=== PATIENT | female | born 1950 | race Caucasian/White ===

== ENCOUNTER 2018-03-11 10:16 | Emergency (ER) | payer OTHER, MEDICAID ==
[~2018-03-11] VITALS: Ht 162.6 cm; Wt 43.5 kg
[2018-03-11 10:16] VITALS: BP_SYST 200
[2018-03-11] MEDS ORDERED: cloNIDine HCL 0.1 MG TABLET PO ONE (10:45)
[2018-03-11 11:45] VITALS: BP_SYST 159
== END 2018-03-11 11:45 | disposition home or self-care (01) ==
LOC: SED 10:16
DX: S51.031A Puncture wound without foreign body of right elbow, initial encounter (principal); I10 Essential (primary) hypertension; Z86.79 Personal history of other diseases of the circulatory system; Z99.2 Dependence on renal dialysis; X58.XXXA Exposure to other specified factors, initial encounter; Y93.89 Activity, other specified; Y92.89 Other specified places as the place of occurrence of the external cause; Y99.8 Other external cause status
CPT/HCPCS: 99283

== ENCOUNTER 2018-05-27 10:59 | Inpatient (IN) | payer OTHER, MEDICAID ==
[2018-05-27] VITALS (19 sets, daily range): BP systolic 77–131
[~2018-05-27] VITALS: Ht 162.6 cm; Wt 47.6 kg
[2018-05-27] MEDS ORDERED: NACL 0.9% 2,000 ML IV ONE (11:15)
[2018-05-27] MEDS ORDERED: VANCOMYCIN HCL 1,000 MG in NS 250 ML IV ONE (11:15)
[2018-05-27] MEDS ORDERED: PIPERACILLIN/TAZOBACTAM 2.25 GM in NS 50 ML IV ONE (11:15)
[2018-05-27] MEDS ORDERED: NS 500 ML IV ONE (11:15)
[2018-05-27] MEDS ORDERED: PIPERACILLIN/TAZOBACTAM 2.25 GM VIAL IV ONE (11:27)
[2018-05-27 11:35] LABS: BASOPHILS # (AUTO) 0.1 K/uL (0.0-0.2); EOSINOPHILS % (AUTO) 0.1 % (0.0-4.0); HEMOGLOBIN 9.5 g/dL (12.0-16.0); LYMPHOCYTES # (AUTO) 1.2 K/uL (1.0-5.5); MONOCYTES # (AUTO) 0.4 K/uL (0.0-1.0)
[2018-05-27 11:40] LABS: HEMATOCRIT 30.2 % (36-48); LYMPHOCYTES % (AUTO) 14.4 % (20.5-51.5); MEAN CORPUSCULAR HEMOGLOBIN 37 pg (27-31); MEAN CORPUSCULAR HGB CONC 32 % (32-36); MEAN CORPUSCULAR VOLUME 116 fL (79.0-98.0); NEUTROPHILS # (AUTO) 6.6 K/uL (1.8-7.7); NEUTROPHILS % (AUTO) 79.5 % (40.0-70.0); RED CELL DISTRIBUTION WIDTH 17.7 % (9.0-15.0); WHITE BLOOD COUNT (AUTO) 8.3 K/uL (4.8-10.8)
[2018-05-27 11:42] LABS: CREATININE 4.22 mg/dL (0.55-1.30); POTASSIUM 4.1 mmol/L (3.5-5.1)
[2018-05-27 11:51] LABS: ALBUMIN 1.4 g/dL (3.4-4.8); TOTAL BILIRUBIN 0.7 mg/dL (0.0-1.0)
[2018-05-27 11:53] LABS: PLATELET COUNT (AUTO) 48 K/uL (130-430)
[2018-05-27] MEDS ORDERED: ONDANSETRON HCL 4 MG/2 ML VIAL IVP ONE ×2 (12:15→15:45)
[2018-05-27] MEDS ORDERED: MORPHINE 2 MG/ML INJ. SYRINGE IVP ONE ×2 (12:15→15:45)
[2018-05-27] MEDS ORDERED: ASPIRIN 325 MG TABLET PO ONE (12:15)
[2018-05-27] MEDS ORDERED: CAT.1 PO (13:07)
[2018-05-27] MEDS ORDERED: SEVE800T8 PO (13:07)
[2018-05-27] MEDS ORDERED: LISI40TA4 PO (13:07)
[2018-05-27] MEDS ORDERED: OMEP20CA10 PO (13:07)
[2018-05-27] MEDS ORDERED: FOLI-43 PO (13:07)
[2018-05-27] MEDS ORDERED: ERGO500020 PO (13:07)
[2018-05-27] MEDS ORDERED: HYDR-4272 PO (13:07)
[2018-05-27] MEDS ORDERED: [UNRECOGNIZED DRUG - REMARK] PO (13:07)
[2018-05-27] MEDS ORDERED: PROXL60 PO (13:07)
[2018-05-27] MEDS ORDERED: NEPH PO (13:07)
[2018-05-27] MEDS ORDERED: ENOXAPARIN SODIUM 30 MG/0.3 ML SYRINGE SUBCUT ONE (13:30)
[2018-05-27] MEDS ORDERED: NOREPINEPHRINE BITARTRATE 4 MG in NS 246 ML IV ONE ×2 (14:15→15:15)
[2018-05-27 14:19] LABS: INR 1.5 (0.8-1.2)
[2018-05-27 14:26] LABS: PROTHROMBIN TIME 15.2 SECS (9.5-12.5)
[2018-05-27] MEDS ORDERED: VANCOMYCIN HCL 1000 MG/VIAL IV ONE (14:34)
[2018-05-27] MEDS ORDERED: NOREPINEPHRINE 4 MG/4 ML VIAL IV ONE (14:41)
[2018-05-27] MEDS ORDERED: PIPERACILLIN/TAZOBACTAM 2.25 GM in NS 50 ML IV SCH (16:00)
[2018-05-27] MEDS: NACL 0.9% 1,000 ML IV SCH (17:40)
[2018-05-27] MEDS ORDERED: VANCOMYCIN HCL 750 MG/NS 250 ML IV ONE (18:00)
[2018-05-27] MEDS: MEROPENEM 500 MG in NS 50 ML IV SCH (20:04)
[2018-05-27] MEDS ORDERED: MORPHINE 4 MG/ML INJ. SYRINGE IVP PRN (20:30)
[2018-05-28] VITALS (24 sets, daily range): BP systolic 86–172
[2018-05-28] MEDS: NACL 0.9% 1,000 ML IV SCH ×2 (00:21→16:06)
[2018-05-28] MEDS: NOREPINEPHRINE BITARTRATE 4 MG in NS 246 ML IV PRN ×2 (00:22→18:48)
[2018-05-28] MEDS: OMEPRAZOLE 20 MG CAPSULE.DR (PriLOSEC) PO SCH (06:02)
[2018-05-28 06:20] LABS: HEMATOCRIT 26.8 % (36-48); HEMOGLOBIN 8.8 g/dL (12.0-16.0); MEAN CORPUSCULAR HEMOGLOBIN 37 pg (27-31); MEAN CORPUSCULAR HGB CONC 33 % (32-36); MEAN CORPUSCULAR VOLUME 114 fL (79.0-98.0); PLATELET COUNT (AUTO) 66 K/uL (130-430); RED BLOOD CELL COUNT(AUTO) 2.35 MIL/uL (4.2-6.2); RED CELL DISTRIBUTION WIDTH 17.1 % (9.0-15.0); WHITE BLOOD COUNT (AUTO) 10.1 K/uL (4.8-10.8)
[2018-05-28 06:45] LABS: ALBUMIN 1.4 g/dL (3.4-4.8); CALCIUM 7.7 mg/dL (8.4-11.0); CREATININE 4.66 mg/dL (0.55-1.30); POTASSIUM 3.6 mmol/L (3.5-5.1); TOTAL BILIRUBIN 0.5 mg/dL (0.0-1.0); VANCOMYCIN,RANDOM 19.5 ug/mL
[2018-05-28 08:03] LABS: BASOPHILS % (MANUAL) 0 % (0-2); EOSINOPHILS % (MANUAL) 0 % (0-7); LYMPHOCYTES % (MANUAL) 9 % (20-46); MONOCYTES % (MANUAL) 4 % (0-11)
[2018-05-28] MEDS: NEPHROVITE, (FOLIC ACID/VITAMIN B COMP W-C 1 TAB) PO SCH (08:22)
[2018-05-28] MEDS: MEROPENEM 500 MG in NS 50 ML IV SCH ×2 (08:23→20:10)
[2018-05-28] MEDS: SEVELAMER HCL 800 MG TABLET PO SCH ×3 (08:23→17:56)
[2018-05-28] MEDS ORDERED: OLOP2.5D5 OP (09:12)
[2018-05-28] MEDS ORDERED: DORZ10DR10 EACH EYE (09:12)
[2018-05-28] MEDS ORDERED: HEPARIN 25,000 UNITS/D5W 250ML 250 ML IV PRN (12:15)
[2018-05-28] MEDS ORDERED: HEPARIN SODIUM,PORCINE 3000 UNITS/0.6 ML BOLUS IVP PRN ×2 (12:30→17:00)
[2018-05-28] MEDS ORDERED: HEPARIN SODIUM,PORCINE 2000 UNITS/0.4 ML BOLUS IVP PRN ×2 (12:30→17:00)
[2018-05-28] MEDS ORDERED: ENOXAPARIN SODIUM 40 MG/0.4 ML SYRINGE SUBCUT SCH (13:00)
[2018-05-28] MEDS ORDERED: *HEPARIN PER PHARMACY XX PRN (14:30)
[2018-05-28] MEDS ORDERED: ALBUMIN HUMAN 25% 200 ML IV ONE (16:30)
[2018-05-28] MEDS ORDERED: HEPARIN SODIUM,PORCINE 5000 UNITS/ML VIAL IV ONE (17:00)
[2018-05-28 17:14] LABS: INR 1.3 (0.8-1.2); PROTHROMBIN TIME 13.3 SECS (9.5-12.5)
[2018-05-28] MEDS ORDERED: HEPARIN SODIUM,PORCINE 5000 UNITS/ML VIAL IVP ONE (18:00)
[2018-05-28] MEDS: HEPARIN 25,000 UNITS in 250 ML PREMIX IV PRN (18:41)
[2018-05-28] MEDS ORDERED: COMMUNICATION ORDER XX ONE (19:30)
[2018-05-28] MEDS: PAZEO OP SCH (20:07)
[2018-05-29] VITALS (24 sets, daily range): BP systolic 79–156
[2018-05-29] MEDS: MORPHINE 4 MG/ML INJ. SYRINGE IVP PRN ×3 (04:13→17:58)
[2018-05-29 04:32] LABS: BASOPHILS # (AUTO) 0.1 K/uL (0.0-0.2); BASOPHILS % (AUTO) 1.3 % (0.0-2.0); EOSINOPHILS # (AUTO) 0.1 K/uL (0.0-0.4); LYMPHOCYTES # (AUTO) 1.5 K/uL (1.0-5.5); LYMPHOCYTES % (AUTO) 15.7 % (20.5-51.5); MEAN CORPUSCULAR HEMOGLOBIN 36 pg (27-31); MEAN CORPUSCULAR HGB CONC 31 % (32-36); MEAN CORPUSCULAR VOLUME 115 fL (79.0-98.0); MONOCYTES # (AUTO) 0.7 K/uL (0.0-1.0); MONOCYTES % (AUTO) 7.6 % (1.7-9.3); NEUTROPHILS % (AUTO) 74.4 % (40.0-70.0); PLATELET COUNT (AUTO) 54 K/uL (130-430); RED CELL DISTRIBUTION WIDTH 17.5 % (9.0-15.0); WHITE BLOOD COUNT (AUTO) 9.4 K/uL (4.8-10.8)
[2018-05-29 04:33] LABS: ALBUMIN 2.2 g/dL (3.4-4.8); CALCIUM 7.7 mg/dL (8.4-11.0); CREATININE 5.36 mg/dL (0.55-1.30); POTASSIUM 3.6 mmol/L (3.5-5.1); TOTAL BILIRUBIN 0.5 mg/dL (0.0-1.0)
[2018-05-29 04:36] LABS: RED BLOOD CELL COUNT(AUTO) 1.79 MIL/uL (4.2-6.2)
[2018-05-29 04:37] LABS: HEMATOCRIT 20.6 % (36-48); HEMOGLOBIN 6.4 g/dL (12.0-16.0)
[2018-05-29] MEDS: OMEPRAZOLE 20 MG CAPSULE.DR (PriLOSEC) PO SCH (06:03)
[2018-05-29] MEDS: NACL 0.9% 1,000 ML IV SCH (08:25)
[2018-05-29] MEDS: SEVELAMER HCL 800 MG TABLET PO SCH ×4 (08:28→18:00)
[2018-05-29] MEDS: NEPHROVITE, (FOLIC ACID/VITAMIN B COMP W-C 1 TAB) PO SCH (08:29)
[2018-05-29] MEDS: MEROPENEM 500 MG in NS 50 ML IV SCH (08:32)
[2018-05-29] MEDS ORDERED: CEFEPIME 1 GM in D5W 50 ML IV ONE (11:30)
[2018-05-29] MEDS ORDERED: ACETAMINOPHEN 325 MG TABLET PO PRN (17:15)
[2018-05-29] MEDS ORDERED: VANCOMYCIN HCL 1,000 MG in NS 250 ML IV SCH (21:00)
[2018-05-30] VITALS (16 sets, daily range): BP systolic 104–189
[2018-05-30] MEDS: NACL 0.9% 1,000 ML IV SCH (00:19)
[2018-05-30 06:46] LABS: HEMATOCRIT 28.7 % (36-48); HEMOGLOBIN 9.4 g/dL (12.0-16.0); LYMPHOCYTES # (AUTO) 1.1 K/uL (1.0-5.5); MEAN CORPUSCULAR HGB CONC 33 % (32-36); MONOCYTES # (AUTO) 0.6 K/uL (0.0-1.0); NEUTROPHILS # (AUTO) 4.4 K/uL (1.8-7.7)
[2018-05-30 06:52] LABS: TOTAL IRON BIND. CAPACITY 39 ug/dL (250-450)
[2018-05-30 07:03] LABS: BASOPHILS % (AUTO) 0.4 % (0.0-2.0); EOSINOPHILS # (AUTO) 0.1 K/uL (0.0-0.4); EOSINOPHILS % (AUTO) 1.2 % (0.0-4.0); INR 1.3 (0.8-1.2); LYMPHOCYTES % (AUTO) 17.9 % (20.5-51.5); MEAN CORPUSCULAR HEMOGLOBIN 31 pg (27-31); MEAN CORPUSCULAR VOLUME 95 fL (79.0-98.0); MONOCYTES % (AUTO) 8.9 % (1.7-9.3); NEUTROPHILS % (AUTO) 71.6 % (40.0-70.0); PROTHROMBIN TIME 13.7 SECS (9.5-12.5); RED BLOOD CELL COUNT(AUTO) 3.02 MIL/uL (4.2-6.2); WHITE BLOOD COUNT (AUTO) 6.2 K/uL (4.8-10.8)
[2018-05-30 07:17] LABS: PLATELET COUNT (AUTO) 38 K/uL (130-430)
[2018-05-30] MEDS: NEPHROVITE, (FOLIC ACID/VITAMIN B COMP W-C 1 TAB) PO SCH (08:03)
[2018-05-30] MEDS: BALSAM PERU/CASTOR OIL 60 GM OINT...G. TP SCH (08:03)
[2018-05-30] MEDS: CEFEPIME 1 GM in D5W 50 ML IV SCH (08:03)
[2018-05-30] MEDS: OMEPRAZOLE 20 MG CAPSULE.DR (PriLOSEC) PO SCH (08:04)
[2018-05-30] MEDS: SEVELAMER HCL 800 MG TABLET PO SCH ×3 (08:04→18:34)
[2018-05-30] MEDS: HEPARIN 25,000 UNITS in 250 ML PREMIX IV PRN (11:58)
[2018-05-30 14:43] LABS: CALCIUM 7.2 mg/dL (8.4-11.0); CREATININE 3.89 mg/dL (0.55-1.30)
[2018-05-30 14:52] LABS: POTASSIUM 2.7 mmol/L (3.5-5.1)
[2018-05-30] MEDS ORDERED: POTASSIUM CHLORIDE 40 MEQ in NS 250 ML IV ONE (15:00)
[2018-05-30] MEDS ORDERED: POTASSIUM CHLORIDE 20 MEQ/PKT PACKET PO ONE (15:00)
[2018-05-30] MEDS: VORICONAZOLE 200 MG TABLET PO SCH (20:41)
[2018-05-30 20:53] LABS: CALCIUM 7.3 mg/dL (8.4-11.0); CREATININE 4.1 mg/dL (0.55-1.30); POTASSIUM 4.1 mmol/L (3.5-5.1)
[2018-05-31 01:50] VITALS: BP_SYST 159
[2018-05-31] MEDS: OMEPRAZOLE 20 MG CAPSULE.DR (PriLOSEC) PO SCH (06:29)
[2018-05-31 06:45] LABS: BASOPHILS % (AUTO) 0.3 % (0.0-2.0); EOSINOPHILS % (AUTO) 0.2 % (0.0-4.0); HEMATOCRIT 29.9 % (36-48); HEMOGLOBIN 9.7 g/dL (12.0-16.0); LYMPHOCYTES # (AUTO) 1.2 K/uL (1.0-5.5); LYMPHOCYTES % (AUTO) 13.8 % (20.5-51.5); MEAN CORPUSCULAR HEMOGLOBIN 31 pg (27-31); MEAN CORPUSCULAR HGB CONC 33 % (32-36); MEAN CORPUSCULAR VOLUME 96 fL (79.0-98.0); MONOCYTES # (AUTO) 0.9 K/uL (0.0-1.0); MONOCYTES % (AUTO) 10.6 % (1.7-9.3); NEUTROPHILS # (AUTO) 6.6 K/uL (1.8-7.7); NEUTROPHILS % (AUTO) 75.1 % (40.0-70.0); PLATELET COUNT (AUTO) 93 K/uL (130-430); RED BLOOD CELL COUNT(AUTO) 3.12 MIL/uL (4.2-6.2); RED CELL DISTRIBUTION WIDTH 28.7 % (9.0-15.0); WHITE BLOOD COUNT (AUTO) 8.7 K/uL (4.8-10.8)
[2018-05-31 07:14] LABS: CALCIUM 7.5 mg/dL (8.4-11.0); CREATININE 4.47 mg/dL (0.55-1.30); POTASSIUM 3.8 mmol/L (3.5-5.1)
[2018-05-31 07:25] LABS: ALBUMIN 1.6 g/dL (3.4-4.8); PHOSPHORUS 2.9 mg/dL (2.7-4.5); TOTAL BILIRUBIN 0.6 mg/dL (0.0-1.0)
[2018-05-31 07:48] VITALS: BP_SYST 117
[2018-05-31] MEDS: SEVELAMER HCL 800 MG TABLET PO SCH ×3 (08:45→17:30)
[2018-05-31] MEDS: NEPHROVITE, (FOLIC ACID/VITAMIN B COMP W-C 1 TAB) PO SCH (08:45)
[2018-05-31] MEDS: CEFEPIME 1 GM in D5W 50 ML IV SCH (08:45)
[2018-05-31] MEDS: VORICONAZOLE 200 MG TABLET PO SCH ×2 (08:46→21:12)
[2018-05-31] MEDS: BALSAM PERU/CASTOR OIL 60 GM OINT...G. TP SCH (09:00)
[2018-05-31 12:06] LABS: FOLATE (FOLIC ACID) 19.4 ng/mL (>3.0)
[2018-05-31] MEDS ORDERED: *HEPARIN PER PHARMACY XX ONE (14:30)
[2018-05-31] MEDS ORDERED: HEPARIN SODIUM,PORCINE 2000 UNITS/0.4 ML BOLUS IVP PRN (15:00)
[2018-05-31] MEDS ORDERED: HEPARIN SODIUM,PORCINE 5000 UNITS/ML VIAL IVP ONE (15:00)
[2018-05-31] MEDS ORDERED: HEPARIN SODIUM,PORCINE 3000 UNITS/0.6 ML BOLUS IVP PRN (15:00)
[2018-05-31] MEDS: HEPARIN 25,000 UNITS/D5W 250ML 250 ML IV PRN (15:30)
[2018-05-31 18:03] VITALS: BP_SYST 141
[2018-05-31] MEDS: MORPHINE 4 MG/ML INJ. SYRINGE IVP PRN ×2 (18:03→23:58)
[2018-05-31 20:00] VITALS: BP_SYST 112
[2018-05-31 23:50] VITALS: BP_SYST 146
[2018-06-01] MEDS: HEPARIN 25,000 UNITS/D5W 250ML 250 ML IV PRN (01:10)
[2018-06-01] MEDS: MORPHINE 4 MG/ML INJ. SYRINGE IVP PRN (04:40)
[2018-06-01] MEDS: OMEPRAZOLE 20 MG CAPSULE.DR (PriLOSEC) PO SCH (06:56)
[2018-06-01 07:47] LABS: BASOPHILS # (AUTO) 0.1 K/uL (0.0-0.2); BASOPHILS % (AUTO) 0.7 % (0.0-2.0); EOSINOPHILS % (AUTO) 0.2 % (0.0-4.0); HEMATOCRIT 29.5 % (36-48); HEMOGLOBIN 9.4 g/dL (12.0-16.0); LYMPHOCYTES # (AUTO) 1.4 K/uL (1.0-5.5); LYMPHOCYTES % (AUTO) 16.7 % (20.5-51.5); MEAN CORPUSCULAR HEMOGLOBIN 31 pg (27-31); MEAN CORPUSCULAR HGB CONC 32 % (32-36); MEAN CORPUSCULAR VOLUME 98 fL (79.0-98.0); MONOCYTES % (AUTO) 11.7 % (1.7-9.3); NEUTROPHILS % (AUTO) 70.7 % (40.0-70.0); RED CELL DISTRIBUTION WIDTH 28.6 % (9.0-15.0); WHITE BLOOD COUNT (AUTO) 8.5 K/uL (4.8-10.8)
[2018-06-01] MEDS: SEVELAMER HCL 800 MG TABLET PO SCH ×3 (08:06→18:09)
[2018-06-01] MEDS: HYDROcodone/ACETAMIN 5-325 MG TAB (NORCO/ VICODIN) PO PRN (08:07)
[2018-06-01 08:13] VITALS: BP_SYST 158
[2018-06-01] MEDS: NEPHROVITE, (FOLIC ACID/VITAMIN B COMP W-C 1 TAB) PO SCH (08:49)
[2018-06-01] MEDS: VORICONAZOLE 200 MG TABLET PO SCH ×2 (08:50→20:44)
[2018-06-01] MEDS: CEFEPIME 1 GM in D5W 50 ML IV SCH (08:51)
[2018-06-01] MEDS: BALSAM PERU/CASTOR OIL 60 GM OINT...G. TP SCH (08:52)
[2018-06-01 11:11] LABS: PLATELET COUNT (AUTO) 90 K/uL (130-430)
[2018-06-01 12:20] VITALS: BP_SYST 101
[2018-06-01 16:39] VITALS: BP_SYST 132
[2018-06-01 23:45] VITALS: BP_SYST 110
[2018-06-02] MEDS: HEPARIN 25,000 UNITS/D5W 250ML 250 ML IV PRN ×3 (05:38→18:13)
[2018-06-02] MEDS: OMEPRAZOLE 20 MG CAPSULE.DR (PriLOSEC) PO SCH (06:58)
[2018-06-02 08:03] VITALS: BP_SYST 116
[2018-06-02] MEDS: NEPHROVITE, (FOLIC ACID/VITAMIN B COMP W-C 1 TAB) PO SCH (08:21)
[2018-06-02] MEDS: VORICONAZOLE 200 MG TABLET PO SCH ×2 (08:22→20:26)
[2018-06-02] MEDS: SEVELAMER HCL 800 MG TABLET PO SCH ×3 (08:22→17:52)
[2018-06-02] MEDS: CEFEPIME 1 GM in D5W 50 ML IV SCH (08:23)
[2018-06-02] MEDS: MORPHINE 4 MG/ML INJ. SYRINGE IVP PRN (08:24)
[2018-06-02 11:44] VITALS: BP_SYST 130
[2018-06-02 13:00] LABS: INR 1.3 (0.8-1.2); PROTHROMBIN TIME 12.7 SECS (9.5-12.5)
[2018-06-02] MEDS: BALSAM PERU/CASTOR OIL 60 GM OINT...G. TP SCH (14:33)
[2018-06-02 15:36] VITALS: BP_SYST 94
[2018-06-02] MEDS: PAZEO OP SCH (17:55)
[2018-06-02] MEDS ORDERED: WARFARIN SODIUM 5 MG TABLET PO ONE (18:00)
[2018-06-02] MEDS: HYDROcodone/ACETAMIN 5-325 MG TAB (NORCO/ VICODIN) PO PRN (18:15)
[2018-06-02 20:05] VITALS: BP_SYST 99
[2018-06-03 01:36] VITALS: BP_SYST 129
[2018-06-03] MEDS: OMEPRAZOLE 20 MG CAPSULE.DR (PriLOSEC) PO SCH (06:21)
[2018-06-03 07:57] LABS: BASOPHILS % (AUTO) 0.2 % (0.0-2.0); EOSINOPHILS # (AUTO) 0.1 K/uL (0.0-0.4); EOSINOPHILS % (AUTO) 0.6 % (0.0-4.0); HEMATOCRIT 29.2 % (36-48); HEMOGLOBIN 9.4 g/dL (12.0-16.0); LYMPHOCYTES # (AUTO) 1.3 K/uL (1.0-5.5); LYMPHOCYTES % (AUTO) 11.5 % (20.5-51.5); MEAN CORPUSCULAR HEMOGLOBIN 31 pg (27-31); MEAN CORPUSCULAR HGB CONC 32 % (32-36); MEAN CORPUSCULAR VOLUME 97 fL (79.0-98.0); MONOCYTES # (AUTO) 0.9 K/uL (0.0-1.0); MONOCYTES % (AUTO) 8.5 % (1.7-9.3); NEUTROPHILS # (AUTO) 8.6 K/uL (1.8-7.7); NEUTROPHILS % (AUTO) 79.2 % (40.0-70.0); PLATELET COUNT (AUTO) 134 K/uL (130-430); RED BLOOD CELL COUNT(AUTO) 3.02 MIL/uL (4.2-6.2); RED CELL DISTRIBUTION WIDTH 26.2 % (9.0-15.0); WHITE BLOOD COUNT (AUTO) 10.9 K/uL (4.8-10.8)
[2018-06-03 08:00] VITALS: BP_SYST 84
[2018-06-03 08:01] LABS: CALCIUM 7.9 mg/dL (8.4-11.0); CREATININE 5.72 mg/dL (0.55-1.30); POTASSIUM 3.7 mmol/L (3.5-5.1)
[2018-06-03 08:03] LABS: INR 1.5 (0.8-1.2); PROTHROMBIN TIME 15.5 SECS (9.5-12.5)
[2018-06-03 08:11] LABS: ALBUMIN 1.4 g/dL (3.4-4.8); PHOSPHORUS 3.8 mg/dL (2.7-4.5); TOTAL BILIRUBIN 0.6 mg/dL (0.0-1.0)
[2018-06-03] MEDS: SEVELAMER HCL 800 MG TABLET PO SCH ×3 (08:34→17:19)
[2018-06-03] MEDS: NEPHROVITE, (FOLIC ACID/VITAMIN B COMP W-C 1 TAB) PO SCH (08:34)
[2018-06-03] MEDS: BALSAM PERU/CASTOR OIL 60 GM OINT...G. TP SCH (08:35)
[2018-06-03] MEDS: VORICONAZOLE 200 MG TABLET PO SCH (08:35)
[2018-06-03] MEDS: CEFEPIME 1 GM in D5W 50 ML IV SCH (08:37)
[2018-06-03 10:00] VITALS: BP_SYST 136
[2018-06-03 12:00] VITALS: BP_SYST 101; BP_SYST 136
[2018-06-03 16:15] VITALS: BP_SYST 144
[2018-06-03 16:47] VITALS: BP_SYST 144
[2018-06-03] MEDS: MORPHINE 4 MG/ML INJ. SYRINGE IVP PRN (17:36)
[2018-06-03] MEDS ORDERED: WARFARIN SODIUM 5 MG TABLET PO SCH (18:00)
[2018-06-04] MEDS ORDERED: OMEPRAZOLE 20 MG CAPSULE.DR (PriLOSEC) PO SCH (09:00)
[2018-06-04] MEDS ORDERED: NEPHROVITE, (FOLIC ACID/VITAMIN B COMP W-C 1 TAB) PO SCH (09:00)
[2018-06-04] MEDS ORDERED: FOLIC ACID 1 MG TABLET PO SCH (09:00)
== END 2018-06-03 19:16 | DRG 871 ==
LOC: SED 10:59 → UNDOADMIN 15:13 → SIC 15:13 → STU 05-30 16:11
PROVIDERS: ADMIT Internal Medicine; ATTEND Internal Medicine
PROC: 30233N1 Transfusion of Nonautologous Red Blood Cells into Peripheral Vein, Percutaneous Approach (ICD-10-PCS; 2018-05-29)
PROC: 5A1D70Z Performance of Urinary Filtration, Intermittent, Less than 6 Hours Per Day (ICD-10-PCS; 2018-05-29)
PROC: 30233R1 Transfusion of Nonautologous Platelets into Peripheral Vein, Percutaneous Approach (ICD-10-PCS; principal; 2018-05-30)
PROC: 5A1D70Z Performance of Urinary Filtration, Intermittent, Less than 6 Hours Per Day (ICD-10-PCS; 2018-06-01)
PROC: B54NZZA Ultrasonography of Left Upper Extremity Veins, Guidance (ICD-10-PCS; 2018-06-01)
PROC: 05HY33Z Insertion of Infusion Device into Upper Vein, Percutaneous Approach (ICD-10-PCS; 2018-06-01)
PROC: 5A1D70Z Performance of Urinary Filtration, Intermittent, Less than 6 Hours Per Day (ICD-10-PCS; 2018-06-03)
DX: A41.9 Sepsis, unspecified organism (principal); N18.6 End stage renal disease; R65.21 Severe sepsis with septic shock; I12.0 Hypertensive chronic kidney disease with stage 5 chronic kidney disease or end stage renal disease; I82.401 Acute embolism and thrombosis of unspecified deep veins of right lower extremity; E46 Unspecified protein-calorie malnutrition; L03.115 Cellulitis of right lower limb; N12 Tubulo-interstitial nephritis, not specified as acute or chronic; N25.81 Secondary hyperparathyroidism of renal origin; Z68.1 Body mass index [BMI] 19.9 or less, adult; E87.6 Hypokalemia; E88.09 Other disorders of plasma-protein metabolism, not elsewhere classified; I73.9 Peripheral vascular disease, unspecified; F10.10 Alcohol abuse, uncomplicated; D63.8 Anemia in other chronic diseases classified elsewhere; D69.59 Other secondary thrombocytopenia; L97.519 Non-pressure chronic ulcer of other part of right foot with unspecified severity; J44.9 Chronic obstructive pulmonary disease, unspecified; Z89.421 Acquired absence of other right toe(s); Z99.2 Dependence on renal dialysis; Z79.899 Other long term (current) drug therapy
CPT/HCPCS: 36415; 71045; 80048; 80053; 80202-TC; 82272; 82607; 82728; 82746; 83540-TC; 83550-TC; 83605; 84100-TC; 84484; 85007; 85025; 85027; 85610-TC; 85730-TC; 86886; 86900; 86901; 86920; 87040-TC; 87070-TC; 87081; 90935; 90937; 93005; 93306; 93971; 96361; 96365; 96366; 96367; 96372; 99285; C1751; J0692; J1644; J1650; J2185; J2270; J2405; J2543; J3370; J3480; J7030; J7050; J7060; P9021; P9034; P9046

== ENCOUNTER 2018-07-22 06:35 | Emergency (ER) | payer OTHER, MEDICAID ==
[~2018-07-22] VITALS: Ht 162.6 cm; Wt 49.0 kg
[~2018-07-22 06:35] MED LIST: DORZ10DR10 EACH EYE; ERGO500020 PO; FOLI-43 PO; HYDR-4272 PO; LISI40TA4 PO; NEPH PO; OLOP2.5D5 OP; OMEP20CA10 PO; PROXL60 PO; SEVE800T8 PO; [UNRECOGNIZED DRUG - REMARK] PO
[2018-07-22 06:39] VITALS: BP_SYST 159
--- NOTE | 2018-07-22 06:44 | NUR ---
Patient to ER bed 6 to gown for evaluation. Side rails up. Report given to Sarah Beth BUSTILLO.
--- NOTE | 2018-07-22 06:45 | NUR ---
Patient brought to ED via BLS from [facility] for right upper arm bleed. Patient 6 minutes into dialysis when old access site began to bleed. Approximately 200cc lost per EMS. Clamp w/ pressure dressing applied en route. Hx of ESRD, cirrhosis and HTN. -Dizziness or LOC
--- NOTE | 2018-07-22 07:25 | NUR ---
ER Dr. Ayala and ER Dr. Weaver at bedside examining AV shunt; uncontrolled bleeding from site. Pressure applied to site. Bleeding controlled. Site wrapped with Coban dressing. Will continue to monitor.
--- NOTE | 2018-07-22 08:25 | NUR ---
Laboratory at bedside.
[2018-07-22 08:45] LABS: BASOPHILS % (AUTO) 0.6 % (0.0-2.0); EOSINOPHILS % (AUTO) 0.6 % (0.0-4.0); MEAN CORPUSCULAR HEMOGLOBIN 32 pg (27-31); MEAN CORPUSCULAR HGB CONC 33 % (32-36); MEAN CORPUSCULAR VOLUME 97 fL (79.0-98.0); MONOCYTES # (AUTO) 0.9 K/uL (0.0-1.0); NEUTROPHILS # (AUTO) 6.2 K/uL (1.8-7.7); NEUTROPHILS % (AUTO) 75.8 % (40.0-70.0); PLATELET COUNT (AUTO) 273 K/uL (130-430); RED BLOOD CELL COUNT(AUTO) 2.21 MIL/uL (4.2-6.2); WHITE BLOOD COUNT (AUTO) 8.1 K/uL (4.8-10.8)
[2018-07-22 09:00] LABS: PROTHROMBIN TIME 10.4 SECS (9.5-12.5)
[2018-07-22 09:05] LABS: HEMATOCRIT 21.5 % (36-48)
[2018-07-22 09:12] LABS: ALBUMIN 2.7 g/dL (3.4-4.8); CALCIUM 8.1 mg/dL (8.4-11.0); CREATININE 5.83 mg/dL (0.55-1.30); TOTAL BILIRUBIN 0.8 mg/dL (0.0-1.0)
[2018-07-22] MEDS ORDERED: SODIUM POLYSTYRENE SULFONATE 15 GM/60 ML UDBTL PO ONE (09:15)
[2018-07-22] MEDS ORDERED: INSULIN REGULAR, HUMAN 10 UNITS/0.1 ML INJ IVP ONE (09:15)
[2018-07-22] MEDS ORDERED: DEXTROSE 50% JECT 50 ML DISP.SYRIN IVP ONE (09:15)
[2018-07-22] MEDS ORDERED: ALBUTEROL SULFATE 0.083% 2.5 MG/3 ML VIAL.NEB INH ONE (09:15)
[2018-07-22] MEDS ORDERED: CALCIUM CHLORIDE 1 GM/10ML VIAL (13.6 mEq Ca++/VIAL) IV ONE (09:30)
[2018-07-22 09:42] LABS: RED CELL DISTRIBUTION WIDTH 22.2 % (9.0-15.0)
--- NOTE | 2018-07-22 09:45 | NUR ---
Medication administered. Pt tolerated well. No adverse reactions noted.
[2018-07-22] MEDS ORDERED: DEXTROSE 50% JECT 50 ML DISP.SYRIN ONE (09:57)
[2018-07-22] MEDS ORDERED: CALCIUM GLUCONATE 1 GM/10 ML VIAL ONE (10:01)
--- NOTE | 2018-07-22 10:10 | NUR ---
Patient to be transferred to [facility]. Is being transferred due to higher level of care. Receiving facility has accepting physician and available space. ER physician has signed transfer form. Patient or responsible republican has agreed to transfer and signed form. Patient belongings inventoried and will be sent with patient. Copy of nursing notes, lab reports, EKG, Physicians Orders and X-rays to be sent with patient. Report called to Mervin BUSTILLO at receiving facility. Receiving physician is Dr. Baum. Emergency ambulance service has been called for transfer. ETA is now.
[2018-07-22 10:11] VITALS: BP_SYST 159
== END 2018-07-22 10:11 | disposition short-term general hospital (02) ==
LOC: SED 06:35
DX: T82.838A Hemorrhage due to vascular prosthetic devices, implants and grafts, initial encounter (principal); I10 Essential (primary) hypertension; Z79.899 Other long term (current) drug therapy; Z86.79 Personal history of other diseases of the circulatory system; Z91.018 Allergy to other foods; Y83.8 Other surgical procedures as the cause of abnormal reaction of the patient, or of later complication, without mention of misadventure at the time of the procedure; Y82.8 Other medical devices associated with adverse incidents
CPT/HCPCS: 36415; 80053; 82962; 85025; 85610; 85730; 86886; 86900; 86901; 94640; 96374; 96375; 99285; J0610; J7613; J1815